=== PATIENT | male | born 1990 | race Asian ===

== ENCOUNTER 2020-12-20 12:06 | Outpatient (REF) | payer OTHER, SELFPAY ==
[2020-12-20 12:58] LABS: MANUAL DIFF FLAG NO
[2020-12-20 13:02] LABS: Basophils Percent Auto 0.5 % (0-2); Eosinophils Absolute Auto 0.1 X10*3/uL (0.0-0.4); Eosinophils Percent Auto 2.1 % (0-4); Hematocrit 43.1 % (42-52); Hemoglobin 13.8 g/dl (14.0-18.0); Imm Gran Abs Auto 0.02 X10*3/uL (0.00-0.03); Imm Gran Pct Auto 0.3 % (0.0-0.4); Lymphocytes Absolute Auto 1.9 X10*3/uL (1.2-4.9); Lymphocytes Percent Auto 33.4 % (20-40); Mean Corpuscular Hemoglobin 25.8 pg (27.0-33.0); Mean Corpuscular Volume 80.7 fL (80-98); Mean Platelet Volume 9.2 fL (9.4-12.4); Monocytes Absolute Auto 0.4 X10*3/uL (0.1-1.2); Neutrophils Absolute Auto 3.2 X10*3/uL (2.0-8.3); Neutrophils Percent Auto 56.7 % (45-73); Platelet Count 347 X10*3/uL (160-400); Red Blood Count 5.34 X10*6/uL (4.60-5.80); Red Cell Distribution Width 13.1 % (11.0-16.0); White Blood Count 5.7 X10*3/uL (4.8-10.8)
[2020-12-20 13:38] LABS: Alanine Aminotransferase 23 U/L (0-40); Albumin Level 4.4 g/dL (3.5-5.0); Alkaline Phosphatase 52 U/L (39-117); Anion Gap 10 (12-20); Aspartate Amino Transferase 26 U/L (5-37); Bilirubin Total 2.1 mg/dL (0.0-1.0); Blood Urea Nitrogen 10 mg/dL (9-16); Calcium 9.4 mg/dL (8.4-10.2); Carbon Dioxide 27 mmol/L (22-29); Chloride 106 mmol/L (96-108); Cholesterol 175 mg/dL; Estimated Glomerular Filt Rate > 60; Glucose Fasting 86 mg/dL (60-99); HDL Cholesterol 48 mg/dL; LDL Cholesterol Calculated 112 mg/dl; Potassium 4.4 mmol/L (3.3-5.1); Sodium 139 mmol/L (135-145); Total Protein 7.6 g/dL (6.5-8.0); Triglycerides 79 mg/dL
== END 2020-12-20 12:07 | disposition home or self-care (01) ==
LOC: HO.LAB 12:06
PROVIDERS: PCP Internal Medicine; Visit Provider Internal Medicine
DX: Z00.00 Encounter for general adult medical examination without abnormal findings (principal); E11.9 Type 2 diabetes mellitus without complications
CPT/HCPCS: 36415; 80053; 80061; 85025

== ENCOUNTER 2020-12-26 10:05 | Outpatient (REF) | payer OTHER, SELFPAY ==
--- NOTE | ~2020-12-26 | US_ITS ---
EXAMINATION: US ABDOMEN COMPLETE CLINICAL INFORMATION: Unspecified abdominal pain. COMPARISON: Ultrasound abdomen complete 06/09/2018 TECHNIQUE: Real-time imaging of the abdominal viscera. FINDINGS: PANCREAS: Normal. ABDOMINAL AORTA: The proximal, mid, and distal segments are normal in caliber. INFERIOR VENA CAVA: Visualized portions are normal. LIVER: Normal. The liver is normal in size. The liver contour is normal. Parenchymal echogenicity is normal. No focal hepatic lesion. There is no intrahepatic biliary duct dilatation seen. GALLBLADDER: Mildly echogenic and slight irregularity of the gallbladder wall, could reflect adenomyomatosis. The gallbladder is physiologically distended without evidence of stones, sludge, polyps, wall thickening or pericholecystic fluid. COMMON BILE DUCT: Normal in caliber measuring 0.2 cm in diameter. RIGHT KIDNEY: Normal. No hydronephrosis. No renal calculi or focal parenchymal lesions. The kidney measures 11.9 cm in maximum dimension. LEFT KIDNEY: Normal. No hydronephrosis. No renal calculi or focal parenchymal lesions. The kidney measures 11.8 cm in maximum dimension. SPLEEN: Normal. The spleen measures 7.1 cm in maximum dimension. FREE FLUID: None. Velocity in the celiac artery 299 cm/s. Velocity in the SMA is 255 cm/s. This is slightly increased. US/US abdomen complete IMPRESSION: 1. Mild echogenicity and irregularity of the gallbladder wall, nonspecific, could represent adenomyomatosis. No shadowing calculi. No findings to suggest acute cholecystitis otherwise. Recommend 3-month followup ultrasound for reassessment. 2. Mild increased velocity in the celiac artery and SMA, nonspecific. Consider dedicated Doppler ultrasound for further evaluation.
== END 2020-12-26 10:06 | disposition home or self-care (01) ==
LOC: HO.US 10:05
PROVIDERS: Visit Provider Internal Medicine
DX: R10.9 Unspecified abdominal pain (principal)
CPT/HCPCS: 76700

== ENCOUNTER 2022-06-01 12:21 | Outpatient (REF) | payer OTHER, SELFPAY ==
[2022-06-01 13:12] LABS: MANUAL DIFF FLAG NO
[2022-06-01 13:23] LABS: Basophils Percent Auto 0.5 % (0-2); Eosinophils Absolute Auto 0.1 X10*3/uL (0.0-0.4); Hematocrit 44.9 % (42.0-52.0); Hemoglobin 14.2 g/dl (14.0-18.0); Imm Gran Abs Auto 0.02 X10*3/uL (0.00-0.03); Imm Gran Pct Auto 0.3 % (0.0-0.4); Lymphocytes Absolute Auto 2.5 X10*3/uL (1.2-4.9); Lymphocytes Percent Auto 39.9 % (20-40); Mean Corpuscular HGB Conc 31.6 g/dl (31.0-36.0); Mean Corpuscular Hemoglobin 25.9 pg (27.0-33.0); Mean Corpuscular Volume 81.8 fL (80.0-98.0); Mean Platelet Volume 9.3 fL (9.4-12.4); Monocytes Absolute Auto 0.4 X10*3/uL (0.1-1.2); Monocytes Percent Auto 6.7 % (2-11); Neutrophils Absolute Auto 3.1 x10*3/uL (2.0-8.3); Neutrophils Percent Auto 50.6 % (45-73); Platelet Count 369 X10*3/uL (160-400); Red Blood Count 5.49 X10*6/uL (4.60-5.80); White Blood Count 6.1 X10*3/uL (4.8-10.8)
[2022-06-01 13:24] LABS: Appearance Urine Cloudy; Color Urine Yellow; Glucose Urine UA Negative (Negative); Leukocyte Esterase Urine Negative (Negative); Nitrite Urine Negative (Negative); PH 7.5 (5.0-9.0); Specific Gravity - Urine 1.015 (1.005-1.025); Urine Blood Negative (Negative); Urine Ketones Negative (Negative); Urine Protein Negative (Neg-Trace)
[2022-06-01 13:35] LABS: Alanine Aminotransferase 40 U/L (0-40); Albumin Level 4.3 g/dL (3.5-5.0); Alkaline Phosphatase 61 U/L (39-117); Anion Gap 13 (12-20); Aspartate Amino Transferase 29 U/L (5-37); Bilirubin Total 1.8 mg/dL (0.0-1.0); Blood Urea Nitrogen 11 mg/dL (9-16); Calcium 9.5 mg/dL (8.4-10.2); Carbon Dioxide 27 mmol/L (22-29); Chloride 103 mmol/L (96-108); Cholesterol 187 mg/dL; Estimated Glomerular Filt Rate > 60; Glucose Fasting 95 mg/dL (60-99); HDL Cholesterol 44 mg/dL; LDL Cholesterol Calculated 117 mg/dl; Potassium 4.3 mmol/L (3.3-5.1); Sodium 139 mmol/L (135-145); Total Protein 7.6 g/dL (6.5-8.0); Triglycerides 134 mg/dL
[2022-06-01 13:55] LABS: TSH reflex Free T4 0.93 uIU/mL (0.32-4.0)
== END 2022-06-01 12:22 | disposition home or self-care (01) ==
LOC: HO.HMGCLDS 12:21
PROVIDERS: PCP Nurse Practitioner Family; Visit Provider Nurse Practitioner Family
DX: Z00.00 Encounter for general adult medical examination without abnormal findings (principal)
CPT/HCPCS: 36415; 80053; 80061; 81003; 84443; 85025

== ENCOUNTER 2022-07-09 15:22 | Outpatient (REF) | payer OTHER, SELFPAY ==
[2022-07-09 17:17] LABS: Bilirubin Direct 0.4 mg/dL (0.0-0.5); Bilirubin Total 1.8 mg/dL (0.0-1.0)
[2022-07-09 17:33] LABS: Vitamin D 25-OH Total 17.2 ng/mL (>30)
== END 2022-07-09 15:23 | disposition home or self-care (01) ==
LOC: HO.HMGCLDS 15:22
PROVIDERS: Visit Provider Nurse Practitioner Family
DX: R17 Unspecified jaundice (principal); R53.83 Other fatigue
CPT/HCPCS: 36415; 82247; 82248; 82306

== ENCOUNTER 2022-07-11 11:34 | Outpatient (REF) | payer OTHER, SELFPAY ==
[2022-07-11 13:31] LABS: Immature Retic Fraction 4.9 % (2.3-13.4); Retic HGB Equivalent 31.5 pg (30.0-35.0); Reticulocytes Absolute 0.058 X10*6/uL (0.026-0.095)
[2022-07-11 13:55] LABS: C Reactive Protein 0.04 mg/dL (< or = 0.50)
[2022-07-13 06:04] LABS: Transglutaminase Ab IgG <1.0 U/mL; Transglutaminase IgA <1.0 U/mL
[2022-07-13 15:33] LABS: Immunoglobulin A 248 mg/dL (47-310)
== END 2022-07-11 11:35 | disposition home or self-care (01) ==
LOC: HO.LAB 11:34
PROVIDERS: PCP Nurse Practitioner Family; Visit Provider Internal Medicine Gastroenterology
DX: R17 Unspecified jaundice (principal); K21.9 Gastro-esophageal reflux disease without esophagitis; R53.83 Other fatigue; E80.4 Gilbert syndrome; E73.9 Lactose intolerance, unspecified; R19.7 Diarrhea, unspecified; R93.2 Abnormal findings on diagnostic imaging of liver and biliary tract
CPT/HCPCS: 36415; 82784; 85045; 86140; 86364; 99202

== ENCOUNTER 2023-03-21 09:28 | Outpatient (REF) | payer OTHER, SELFPAY ==
[2023-03-21 11:14] LABS: MANUAL DIFF FLAG NO
[2023-03-21 11:43] LABS: Basophils Absolute Auto 0.1 X10*3/uL (0.0-0.2); Basophils Percent Auto 0.9 % (0-2); Eosinophils Absolute Auto 0.1 X10*3/uL (0.0-0.4); Eosinophils Percent Auto 1.6 % (0-4); Hematocrit 47.6 % (42.0-52.0); Hemoglobin 14.9 g/dl (14.0-18.0); Imm Gran Abs Auto 0.04 X10*3/uL (0.00-0.03); Imm Gran Pct Auto 0.7 % (0.0-0.4); Lymphocytes Absolute Auto 2.1 X10*3/uL (1.2-4.9); Lymphocytes Percent Auto 37.1 % (20-40); Mean Corpuscular HGB Conc 31.3 g/dl (31.0-36.0); Mean Corpuscular Hemoglobin 25.4 pg (27.0-33.0); Mean Corpuscular Volume 81.1 fL (80.0-98.0); Mean Platelet Volume 9.6 fL (9.4-12.4); Monocytes Absolute Auto 0.4 X10*3/uL (0.1-1.2); Monocytes Percent Auto 6.8 % (2-11); Neutrophils Percent Auto 52.9 % (45-73); Platelet Count 409 X10*3/uL (160-400); Red Blood Count 5.87 X10*6/uL (4.60-5.80); Red Cell Distribution Width 13.2 % (11.0-16.0); White Blood Count 5.7 X10*3/uL (4.8-10.8)
[2023-03-21 12:50] LABS: Folate 7.7 ng/mL (> or = 4.0); Vitamin B12 345 pg/mL (200-900)
[2023-03-21 13:29] LABS: Appearance Urine Clear; Color Urine Yellow; Glucose Urine UA Negative (Negative); Leukocyte Esterase Urine Negative (Negative); Nitrite Urine Negative (Negative); PH 7.5 (5.0-9.0); Urine Blood Negative (Negative); Urine Ketones Negative (Negative); Urine Protein Negative (Neg-Trace)
[2023-03-21 14:23] LABS: Alanine Aminotransferase 48 U/L (0-40); Albumin Level 4.4 g/dL (3.5-5.0); Alkaline Phosphatase 55 U/L (39-117); Anion Gap 13 (12-20); Aspartate Amino Transferase 40 U/L (5-37); Bilirubin Total 1.3 mg/dL (0.0-1.0); Blood Urea Nitrogen 11 mg/dL (9-16); Calcium 9.7 mg/dL (8.4-10.2); Carbon Dioxide 25 mmol/L (22-29); Chloride 103 mmol/L (96-108); Cholesterol 206 mg/dL (<200); Estimated Glomerular Filt Rate > 60; Glucose Fasting 82 mg/dL (60-99); HDL Cholesterol 49 mg/dL (>40); Iron 78 mcg/dL (45-160); LDL Cholesterol Calculated 141 mg/dL (<100); Percent Iron Saturation 22 % (15-50); Potassium 3.7 mmol/L (3.3-5.1); Sodium 137 mmol/L (135-145); Total Iron Binding Capacity 352 mcg/dL (228-428); Triglycerides 82 mg/dL (<150); Unsaturated Iron Binding 274 ug/dL
[2023-03-21 14:26] LABS: Ferritin 99 ng/mL (20-250); TSH reflex Free T4 1.08 uIU/mL (0.32-4.0); Vitamin D 25-OH Total 31.4 ng/mL (>30)
[2023-03-24 22:42] LABS: A. Phagocytphilium DNA,RT-PCR NOT DETECTED (NOT DETECTED); Babesia Microti DNA, RT-PCR NOT DETECTED (NOT DETECTED); Borrelia Miyamotoi,DNA RT-PCR NOT DETECTED (NOT DETECTED); E.Chaffeensis DNA RT-PCR NOT DETECTED (NOT DETECTED); Lyme(Borrelia ssp)DNA RT-PCR NOT DETECTED (NOT DETECTED)
[2023-03-25 11:35] LABS: Anti Nuclear Antibody Screen NEGATIVE (NEGATIVE)
[2023-03-28 14:39] LABS: DNAds, Crithidia Antibody Negative (Negative)
== END 2023-03-21 09:29 | disposition home or self-care (01) ==
LOC: HO.HMGCLDS 09:28
PROVIDERS: PCP Nurse Practitioner Family; Visit Provider Nurse Practitioner Family
DX: R53.83 Other fatigue (principal)
CPT/HCPCS: 36415; 80053; 80061; 81003; 82306; 82607; 82728; 82746; 83540; 84443; 85025; 86038; 86255; 87468; 87469; 87478; 87484; 87798

== ENCOUNTER 2023-04-01 10:00 | Outpatient (REF) | payer OTHER, SELFPAY ==
--- NOTE | ~2023-04-01 | US_ITS ---
EXAMINATION: US ABDOMEN COMPLETE CLINICAL INFORMATION: Abnormal levels of other serum enzymes. COMPARISON: Ultrasound abdomen complete 12/26/2020 and 06/09/2018. TECHNIQUE: Real-time imaging of the abdominal viscera. FINDINGS: PANCREAS: Normal. ABDOMINAL AORTA: The proximal, mid, and distal segments are normal in caliber. INFERIOR VENA CAVA: Visualized portions are normal. LIVER: The liver is normal in size. The liver contour is normal. There is diffuse increased liver parenchymal echogenicity, consistent with hepatic steatosis. No focal hepatic lesion. There is no intrahepatic biliary duct dilatation seen. GALLBLADDER: Tiny 3 mm gallbladder wall polyp with ball on wall morphology. No underlying mural thickening. This is considered extremely low risk. No follow-up imaging is recommended as per the SRU guidelines. No cholelithiasis. No evidence of cholecystitis. Negative sonographic Barnett sign. COMMON BILE DUCT: Normal in caliber measuring 0.16 cm in diameter. RIGHT KIDNEY: Normal. No hydronephrosis. No renal calculi or focal parenchymal lesions. The kidney measures 11.7 cm in maximum dimension. LEFT KIDNEY: Normal. No hydronephrosis. No renal calculi or focal parenchymal lesions. The kidney measures 11.8 cm in maximum dimension. SPLEEN: Normal. The spleen measures 8.1 cm in maximum dimension. FREE FLUID: None. US/US abdomen complete IMPRESSION: Hepatic steatosis.
== END 2023-04-01 10:01 | disposition home or self-care (01) ==
LOC: HO.HMGCX 10:00
PROVIDERS: PCP Nurse Practitioner Family; Visit Provider Nurse Practitioner Family
DX: R74.8 Abnormal levels of other serum enzymes (principal)
CPT/HCPCS: 76700

== ENCOUNTER 2023-04-03 13:40 | Outpatient (AMB) | payer OTHER, SELFPAY ==
--- NOTE | 2023-04-03 13:46 | A.OFFVIS_ITS ---
Intake Vital Signs 04/03/23 13:49 Height 6 ft 2 in Weight 163 lb BMI 20.9 BP 124/73 Blood Pressure Location Lt brachial Position Sitting Pulse 95 Intake Visit Reasons: 3 month follow up Intake Note: Patient follow up for lab results Patient denies any GI issues. Patient needed to get his Vitamin D in tablets he is allergy to capsule. 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 De La Torre for elevated bilirubin LABS IN [facility] : reviewed IMAGING STUDIES: 04/01/23 ABD US SHOWED: LIVER: The liver is normal in size. The liver contour is normal. There is diffuse increased liver parenchymal echogenicity, consistent with hepatic steatosis. No focal hepatic lesion. There is no intrahepatic biliary duct dilatation seen. GALLBLADDER: Tiny 3 mm gallbladder wall polyp with ball on wall morphology. No underlying mural thickening. This is considered extremely low risk. No follow-up imaging is recommended as per the SRU guidelines. No cholelithiasis. No evidence of cholecystitis. Negative sonographic Barnett sign. 12/26/21 ABD US SHOWED: 1. Mild echogenicity and irregularity of the gallbladder wall, nonspecific, could represent adenomyomatosis. No shadowing calculi. No findings to suggest acute cholecystitis otherwise. Recommend 3-month followup ultrasound for reassessment. ? 2. Mild increased velocity in the celiac artery and SMA, nonspecific. Consider dedicated Doppler ultrasound for further evaluation. TODAY'S VISIT: Notes heartburn if he takes spicy food at night - not taking Pt gives a hx of being told he had an elevated bilirubin in the past. Denies known hx of Jaundice. Complains on intermittent heartburn specially when he wakes up in the morning. Takes TUMS prn. Decreased appetite and does not feel hungry till 3-4 pm in the afternoon Has lost weight and has been unable to gain weight Complains of fatigue and notes diarrhea with milk products, spicy foods Patient denies symptoms of dysphagia, nausea, vomiting. Denies recent change in bowel habits, constipation, black stools or rectal bleeding. Patient denies major cardiac or pulmonary problems, loud snoring or sleep apnea Denies problems with anesthesia in the past. Denies being on chronic anticoagulation. Patient denies known family history of liver disease, colon polyps, colon cancer or other GI malignancies. Patient denies symptoms of dysphagia, nausea, vomiting, change in appetite or weight. Denies recent change in bowel habits, constipation, black stools or rectal bleeding. Remote hx of rectal bleeding. Patient denies major cardiac or pulmonary problems, loud snoring or sleep apnea Takes an allergy shot every 2 weeks - breathing problems due to allergies Denies being on chronic anticoagulation. Patient denies known family history of liver disease, colon polyps, colon cancer or other GI malignancies. 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 PAST EGD/COLONOSCOPY: Patient denies having an upper endoscopy or a colonoscopy in the past [facility] Medical History (Updated 04/02/23 @ 12:38 by Rubin To [facility]) Fatty liver Surgical History No pertinent past surgical history Family History Mother No problems noted. Father No problems noted. Social History Housing: House Alcohol intake: never Patient Tobacco Use Status: Never used Tobacco e-Cigarette/Vaping Use: Never Used Second Hand Smoke Exposure: No service: No Current occupational status: employed Current occupation: [employer] Current occupational exposures/hazards: No Cognitive needs: No Hearing needs: No Vision needs: No Review of Systems Const All systems reviewed & are unremarkable except as noted in HPI and below Physical Exam Vital Signs: Last Vital Signs Pulse 95 04/03/23 13:49 BP 124/73 04/03/23 13:49 BMI result Body Mass Index 20.9 Const General: healthy appearing and no acute distress Nutritional Appearance: average body habitus Orientation/consciousness: patient oriented x3 Limitations: no limitations HEENT Head: Yes normal to inspection Ears: hearing grossly normal bilaterally Eyes Sclerae: sclerae normal Pupils: Equal, round and reactive pupils present Neck Neck: Yes normal visual inspection Chest Chest palpation & inspection: normal inspection of the chest Resp Effort & Inspection: normal respiratory effort Auscultation: clear to auscultation bilaterally Cardio Palpation: normal PMI Rate: regular rate Rhythm: regular rhythm Heart sounds: S1 normal heart sound present, S2 normal heart sound present and no murmurs GI Palpation (GI): Soft to palpation, nontender and No hepatosplenomegaly present Auscultation: normal bowel sounds Rectal Exam - Male: Yes deferred Skin General skin exam: no rashes or lesions noted Neuro General: patient oriented x3, gait normal and moves all extremities Cranial nerves: Yes Equal, round and reactive pupils present Psych Appearance: grossly normal Mental Status: mental status grossly normal Assessment & Plan Assessment & Plan (1) Elevated liver enzymes: Code(s): R74.8 - Abnormal levels of other serum enzymes (2) Intermittent diarrhea: Code(s): R19.7 - Diarrhea, unspecified (3) Lactose intolerance: Code(s): E73.9 - Lactose intolerance, unspecified (4) Gilbert's syndrome: Code(s): E80.4 - Gilbert syndrome (5) GERD (gastroesophageal reflux disease): Code(s): K21.9 - Gastro-esophageal reflux disease without esophagitis (6) Abnormal ultrasound of gallbladder: Code(s): R93.2 - Abnormal findings on diagnostic imaging of liver and biliary tract Plan 33 year old [place] male referred by Dr. Coronado for isolated eleva tion of total bilirubin (predominantly indirect and remaining LFTs were normal) This lab abnormality is likely due to Gilbert's syndrome which was explained to the patient and pt a handout from [facility] was given to him. Complains on intermittent heartburn likely due to GERD - resolved after dietary modification. Pt notes diarrhea with milk products, spicy foods - likely due to lactose intolerance/ diarrhea predominant IBS. Pt was advised to switch to Lactaid milk and a patient information on lactose intolerance was provided to the patient. Patient was advised to start a fiber supplement (psyllium husk) for diarrhea. 04/03/23 Mild elevation of transaminases on recent labs - likely due to fatty liver Hepatitis and celiac serologies were negative in the past Iron studies and CHRISTIANA was normal Patient was advised to follow up in 4 months to have repeat labs 1-2 weeks prior to FU appt. Orders: Orders Smooth Muscle Antibody 06/06/23 R74.8 - Abnormal levels of other serum enzymes Liver Panel 06/06/23 R74.8 - Abnormal levels of other serum enzymes Alpha-1 Antitrypsin Phenotype 06/06/23 R74.8 - Abnormal levels of other serum enzymes Ceruloplasmin 06/06/23 R74.8 - Abnormal levels of other serum enzymes Copper, serum 06/06/23 R74.8 - Abnormal levels of other serum enzymes Protein Electrophoresis, Serum 06/06/23 R74.8 - Abnormal levels of other serum enzymes Medications: New cholecalciferol (vitamin D3) 125 mcg orally three times a week; 40 tabs 1RF 90 days multivitamin 1 tab PO QAM 90 tabs 1RF 90 days Coding Level of Care Code Est Pt Level 4 (27688) Diagnoses Elevated liver enzymes R74.8 Intermittent diarrhea R19.7 Lactose intolerance E73.9 Gilbert's syndrome E80.4 GERD (gastroesophageal reflux disease) K21.9 Abnormal ultrasound of gallbladder R93.2 Time Spent (min) 21
[2023-04-03 13:49] VITALS: BP 124/73; PULSE 95; BMI 20.9
== END 2023-04-03 14:39 | disposition home or self-care (01) ==
PROVIDERS: Visit Provider Internal Medicine Gastroenterology
DX: R74.8 Abnormal levels of other serum enzymes (principal); R19.7 Diarrhea, unspecified; E73.9 Lactose intolerance, unspecified; E80.4 Gilbert syndrome; K21.9 Gastro-esophageal reflux disease without esophagitis; R93.2 Abnormal findings on diagnostic imaging of liver and biliary tract
CPT/HCPCS: 99214

== ENCOUNTER → 2023-04-03 13:40 | Outpatient (BNVA) | payer OTHER, SELFPAY | PROVIDERS: Visit Provider Internal Medicine Gastroenterology | DX: R74.8 Abnormal levels of other serum enzymes (principal); R19.7 Diarrhea, unspecified; E73.9 Lactose intolerance, unspecified; E80.4 Gilbert syndrome; K21.9 Gastro-esophageal reflux disease without esophagitis; R93.2 Abnormal findings on diagnostic imaging of liver and biliary tract | CPT/HCPCS: 99212 ==

== ENCOUNTER 2023-12-09 11:40 | Outpatient (REF) | payer OTHER, SELFPAY ==
[2023-12-09 13:56] LABS: Alanine Aminotransferase 50 U/L (0-40); Albumin Level 4.2 g/dL (3.5-5.0); Alkaline Phosphatase 54 U/L (39-117); Aspartate Amino Transferase 32 U/L (5-37); Bilirubin Direct 0.3 mg/dL (0.0-0.5); Total Protein 7.7 g/dL (6.5-8.0)
[2023-12-10 04:03] LABS: HBS Num1 97.08 mIU/mL (0-7.99); HBc Num1 0.07 S/CO (0.00-0.79); HBsAGNum1 0.26 S/CO (0.00-0.99); Hepatitis A Antibody IgM 0.24 Index (0-0.79); Hepatitis B Core Antibody Nonreactive (Nonreactive); Hepatitis B Surface Antigen Negative (Negative); ~HepC Num1 0.15 S/CO (0.00-0.79); ~Hepatitis A Antibody IgM Nonreactive (Nonreactive); ~Hepatitis B Surface Antibody REACTIVE (Nonreactive); ~Hepatitis C Antibody Nonreactive (Nonreactive)
[2023-12-10 18:43] LABS: Ceruloplasmin 13 mg/dL (14-30)
[2023-12-10 21:29] LABS: Prot Elec - Albumin 4.4 g/dL (3.8-4.8); Prot Elec - Alpha1 0.2 g/dL (0.2-0.3); Prot Elec - Alpha2 0.6 g/dL (0.5-0.9); Prot Elec - Beta 1 0.5 g/dL (0.4-0.6); Prot Elec - Beta 2 0.4 g/dL (0.2-0.5); Prot Elec - Gamma 1.5 g/dL (0.8-1.7); Prot Elec - Total Protein 7.6 g/dL (6.1-8.1)
[2023-12-12 13:38] LABS: Copper, serum 48 mcg/dL (70-175)
[2023-12-15 15:58] LABS: Smooth Muscle Antibody <20 U (<20)
[2023-12-25 15:13] LABS: A1A Clinical Indication NG; A1A Referring Physician NG
== END 2023-12-09 11:41 | disposition home or self-care (01) ==
LOC: HO.HMGCLDS 11:40
PROVIDERS: Internal Medicine Gastroenterology; PCP Nurse Practitioner Family; Visit Provider Nurse Practitioner Family
DX: R74.8 Abnormal levels of other serum enzymes (principal)
CPT/HCPCS: 36415; 80076; 82104; 82390; 82525; 84165; 86015; 86704; 86706; 86709; 86803; 87340

== ENCOUNTER 2024-01-19 15:04 | Outpatient (AMB) | payer OTHER, SELFPAY ==
--- NOTE | 2024-01-19 15:05 | A.OFFPC_ITS ---
Vital Signs 01/19/24 15:13 Height 6 ft 1 in Weight 173 lb BMI 22.8 BP 128/80 Blood Pressure Location Rt brachial Position Sitting Pulse 72 Pulse Source Pulse Oximeter Pulse Oximetry (%) 100 Oxygen Delivery Method Room Air Intake Visit Reasons: PE/labs NEEDS COMPLETE PHQ9 +THRIVE Intake Note: Patient here for physical exam. pt would like to talk about lower right abd pain that has been coming and going for awhile now. Allergies gelatin Adverse Reaction (Verified 01/19/24 15:14) Unknown Tobacco use date assessed: 01/19/24 Dental Screening Dental Screen Date: 01/19/24 Did you have a dental visit in the last 12 months?: No Did you have a dental problem in the last 6 months where you did not have access to dental care?: No Was dental information given to patient?: No HPI HPI Comments History of Present Illness Details pt is here for a PE. Reports he thinks negatively sometimes, i always think something is going to happen . Pt is requesting a therapist, i will let guillermo know () [facility] Medical History Fatty liver Surgical History No pertinent past surgical history Family History Mother No problems noted. Father No problems noted. Social History Housing: House Alcohol intake: never Patient Tobacco Use Status: Never used Tobacco e-Cigarette/Vaping Use: Never Used Second Hand Smoke Exposure: No service: No Current occupational status: employed Current occupation: [employer] Current occupational exposures/hazards: No Cognitive needs: No Hearing needs: No Vision needs: No Questionnaire PHQ-9 Over the last 2 weeks, how often have you been bothered by any of the following problems? 79956 - PHQ-9 Billing: Patient declined-do not bill Source: Developed by Drs. Marco Antonio Oconnor, Lea Aleman, Anderson Cassidy and colleagues, with an educational carrie from [employer]. Thrive Questionnaire Date Thrive assessed: 01/19/24 I am a: Patient What is your living situation today?: I have a steady place to live Within the past 12 months, did the food you bought not last and you didn't have the money to get more?: I choose not to answer this question Within the past 12 months, did you worry whether your food would run out before you got money to buy more?: I choose not to answer this question Do you have trouble paying for medicines?: I choose not to answer this question Do you have trouble getting transportation to medical appointments?: I choose not to answer this question Do you have trouble paying your heating and electricity bill?: I choose not to answer this question Do you have trouble taking care of your child, family member or friend?: I choose not to answer this question Do you have trouble with day-to-day activities such as bathing, preparing meals, shopping, managing finances, etc.?: I choose not to answer this question Are you currently unemployed and looking for a job?: I choose not to answer this question Are you interested in more education?: I choose not to answer this question Please select the resources that you would like help with: Housing/Chcf Currently or been in a relationship where the following occur: I choose not to answer THRIVE Score: 0 AUDIT C Alcohol Use Questionnaire (AUDIT-C) 1. How often do you have a drink containing alcohol?: Never Total Score: 0 Score Reviewed/Action Taken: Yes ELIZABETH-7 AMB Questionnaire ELIZABETH-7 Date ELIZABETH - 7 assessed: 01/19/24 Feeling nervous, anxious, or on edge: 0 = Not at all Not being able to stop or control worryin = Not at all Worrying too much about different things: 0 = Not at all Trouble relaxin = Not at all Being so restless that it is hard to sit still: 0 = Not at all Becoming easily annoyed or irritable: 0 = Not at all Feeling afraid as if something awful might happen: 0 = Not at all Total ELIZABETH-7 score (0-4 normal; 5-9 mild; 10-14 moderate; 15-21 severe): 0 Source: Developed by Drs. Marco Antonio Oconnor, Lea Aleman, Anderson Cassidy and colleagues, with an educational carrie from [employer]. ELIZABETH-7 Assessment Billing ELIZABETH-7 Assessment Tool: ELIZABETH-7 Assessment 95182 Review of Systems Const Denies chills and Denies fever(s) Eyes Denies blurry vision ENT Denies vertigo, Denies dizziness and Denies sore throat Card Denies chest pain at rest, Denies chest pain with activity, Denies diaphoresis, Denies dyspnea and Denies dyspnea on exertion Resp Denies cough, Denies dyspnea, Denies dyspnea on exertion and Denies wheezing GI Denies abdominal pain, Denies melena, Denies hematochezia, Denies constipation, Denies diarrhea and Denies loose stools Denies hematuria Musc Denies numbness and Denies tingling Skin/Breast Denies lesions Neuro Denies vertigo, Denies dizziness, Denies numbness and Denies tingling Psych Denies anxiety, Denies depression, Denies homicidal ideation, Denies suicidal ideation and Denies other (substance abuse) Aller/Immun Denies wheezing Physical exam (Primary Care) Vital Signs: Last Vital Signs Pulse 72 01/19/24 15:13 BP 128/80 01/19/24 15:13 Pulse Ox 100 01/19/24 15:13 Oxygen Delivery Method Room Air 01/19/24 15:13 BMI result Body Mass Index 22.8 Tobacco/Smoking Status: Tobacco use Status Tobacco use date assessed 01/19/24 01/19/24 15:17 Patient Tobacco Use Status Never used Tobacco 01/19/24 15:07 e-Cigarette/Vaping Use Never Used 01/19/24 15:07 Thrive Assessment: Date of Thrive Assessment Date Thrive assessed 01/19/24 01/19/24 15:17 Currently or been in a relationship where the following occur: I choose not to answer Const General: cooperative Nutritional Appearance: well nourished Orientation/consciousness: patient oriented x3 HENMT Head: Yes normal to inspection, Yes normocephalic and Yes atraumatic Ears: TM normal on the right and TM normal on the left Eyes General: appearance normal, both eyes and all related structures Alignment and Position: alignment normal and position normal Neck Neck: Yes normal visual inspection and Yes no lymphadenopathy Resp Effort & Inspection: normal respiratory effort Auscultation: clear to auscultation bilaterally Cardio Rate: regular rate Rhythm: regular rhythm Heart sounds: S1 normal heart sound present, S2 normal heart sound present and no murmurs GI Palpation (GI): Soft to palpation and nontender Auscultation: normal bowel sounds Male General Exam: Yes normal external exam Penis: normal penis Scrotum: scrotum normal, testes descended bilaterally and no inguinal hernias Testes: no testicular mass Skin Rashes: no rashes Neuro General: patient oriented x3, moves all extremities, no focal motor deficits and deep tendon reflexes 2+ bilaterally Romberg Test: Negative Extrem Right lower extremity: no edema Left lower extremity: no edema Psych Affect: normal affect Attitude: cooperative Thought process: Normal thought process present Assessment and Plan Assessment & Plan (1) Physical exam: Code(s): Z00.00 - Encounter for general adult medical examination without abnormal findings (2) Vitamin D deficiency: Code(s): E55.9 - Vitamin D deficiency, unspecified Orders: Orders Comprehensive Salt Flat. Panel Fast Today Z00.00 - Encounter for general adult medical examination without abnormal findings Complete Blood Count Auto Diff Today Z00.00 - Encounter for general adult medical examination without abnormal findings TSH reflex Free T4 Today Z00.00 - Encounter for general adult medical examination without abnormal findings UA CC w/rflx Micro + Cult Today Z00.00 - Encounter for general adult medical examination without abnormal findings Lipid Panel Today Z00.00 - Encounter for general adult medical examination without abnormal findings Vitamin D 25-OH Total Today E55.9 - Vitamin D deficiency, unspecified Coding Level of Care Code Est Pt Prev Care 18-39y([id number]) Diagnoses Physical exam Z00.00 Vitamin D deficiency E55.9 Additional Codes ELIZABETH-7 Assessment Billing - ELIZABETH-7 Assessment Tool: ELIZABETH-7 Assessment [id number] ([id number])
[2024-01-19 15:13] VITALS: BP 128/80; PULSE 72; O2SAT 100; BMI 22.8
== END 2024-01-19 15:52 | disposition home or self-care (01) ==
PROVIDERS: PCP Nurse Practitioner Family; Visit Provider Nurse Practitioner Family
DX: Z00.00 Encounter for general adult medical examination without abnormal findings (principal); E55.9 Vitamin D deficiency, unspecified
CPT/HCPCS: 99395

== ENCOUNTER 2024-06-19 11:55 | Outpatient (REF) | payer OTHER, SELFPAY ==
[2024-06-19 13:35] LABS: MANUAL DIFF FLAG NO
[2024-06-19 13:38] LABS: Basophils Absolute Auto 0.1 X10*3/uL (0.0-0.2); Basophils Percent Auto 0.8 % (0-2); Eosinophils Absolute Auto 0.1 X10*3/uL (0.0-0.4); Eosinophils Percent Auto 1.9 % (0-4); Hemoglobin 14.7 g/dl (14.0-18.0); Imm Gran Abs Auto 0.03 X10*3/uL (0.00-0.03); Imm Gran Pct Auto 0.4 % (0.0-0.4); Lymphocytes Absolute Auto 2.2 X10*3/uL (1.2-4.9); Lymphocytes Percent Auto 29.6 % (20-40); Mean Corpuscular Hemoglobin 25.7 pg (27.0-33.0); Mean Corpuscular Volume 80.6 fL (80.0-98.0); Mean Platelet Volume 9.4 fL (9.4-12.4); Monocytes Absolute Auto 0.5 X10*3/uL (0.1-1.2); Monocytes Percent Auto 7.3 % (2-11); Neutrophils Absolute Auto 4.4 x10*3/uL (2.0-8.3); Platelet Count 394 X10*3/uL (160-400); Red Blood Count 5.71 X10*6/uL (4.60-5.80); White Blood Count 7.3 X10*3/uL (4.8-10.8)
[2024-06-19 14:35] LABS: Appearance Urine Clear; Color Urine Yellow; Glucose Urine UA Negative (Negative); Leukocyte Esterase Urine Negative (Negative); Nitrite Urine Negative (Negative); PH 7.5 (5.0-9.0); Urine Blood Negative (Negative); Urine Ketones Negative (Negative); Urine Protein Negative (Neg-Trace)
[2024-06-19 14:46] LABS: Alanine Aminotransferase 93 U/L (0-40); Albumin Level 4.3 g/dL (3.5-5.0); Alkaline Phosphatase 66 U/L (39-117); Anion Gap 11 (12-20); Aspartate Amino Transferase 51 U/L (5-37); Bilirubin Total 1.2 mg/dL (0.0-1.0); Blood Urea Nitrogen 12 mg/dL (9-16); Calcium 9.6 mg/dL (8.4-10.2); Carbon Dioxide 28 mmol/L (22-29); Chloride 105 mmol/L (96-108); Cholesterol 202 mg/dL (<200); Estimated Glomerular Filt Rate > 60; Glucose Fasting 82 mg/dL (60-99); HDL Cholesterol 43 mg/dL (>40); LDL Cholesterol Calculated 133 mg/dL (<100); Potassium 3.8 mmol/L (3.3-5.1); Sodium 140 mmol/L (135-145); Total Protein 8.1 g/dL (6.5-8.0); Triglycerides 133 mg/dL (<150)
[2024-06-19 15:01] LABS: TSH reflex Free T4 0.98 uIU/mL (0.32-4.0)
== END 2024-06-19 11:56 | disposition home or self-care (01) ==
LOC: HO.HMGCLDS 11:55
PROVIDERS: PCP Nurse Practitioner Family; Visit Provider Nurse Practitioner Family
DX: Z00.00 Encounter for general adult medical examination without abnormal findings (principal); E55.9 Vitamin D deficiency, unspecified
CPT/HCPCS: 36415; 80053; 80061; 81003; 82306; 84443; 85025

== ENCOUNTER 2025-02-08 15:00 | Outpatient (AMB) | payer OTHER, SELFPAY ==
[2025-02-08 15:05] VITALS: BP 126/86; PULSE 87; RESP 16; TEMP 36.9; O2SAT 99; BMI 22.5
--- NOTE | 2025-02-08 15:05 | MHC.PC.OV ---
Vital Signs 02/08/25 15:05 Height 6 ft 2 in Weight 175 lb BMI 22.5 BP 126/86 Blood Pressure Location Rt brachial Position Sitting Respiration 16 Pulse 87 Pulse Source Pulse Oximeter Temp 98.4 F Temp Source Oral Pulse Oximetry (%) 99 Oxygen Delivery Method Room Air Intake Visit Reasons: PE Mill Set Up Required: No Accompanied by: Self / Same As Patient Allergies gelatin Adverse Reaction (Verified 02/08/25 15:06) Unknown Medication List - Last Reconciled 02/08/25 by CARMELITA Johnson cholecalciferol (vitamin D3) 50 mcg PO DAILY multivitamin 1 tab PO QAM 90 days Tobacco use date assessed: 02/08/25 Dental Screening Dental Screen Date: 02/08/25 Did you have a dental visit in the last 12 months?: No Did you have a dental problem in the last 6 months where you did not have access to dental care?: No Was dental information given to patient?: Patient has dentist HPI PE HPI Details History of Present Illness The patient is a 35-year-old male presenting with incomplete bladder emptying and concerns regarding prostate health. He reports intermittent incomplete bladder emptying without dysuria or hematuria, and there is no family history of prostate carcinoma. A digital rectal examination indicated a slightly enlarged prostate for his age, leading to a referral to urology for further evaluation. Preventative measures include a prostate-specific antigen (PSA) test today, with plans for additional laboratory tests such as urinalysis in the near future. Health Maintenance - Prostate-specific antigen (PSA) screening Social History Review of Systems - Genitourinary: Reports intermittent incomplete bladder emptying. Denies dysuria or hematuria. Physical Exam General: Cooperative, healthy appearing, comfortable, no acute distress and well developed Orientation: Patient oriented x3 Limitations: No limitations Head: Normal to inspection Ears: Hearing grossly normal bilaterally Nose: Normal external nose present Face and sinus: Normal facial exam Eyes: Appearance normal, both eyes and all related structures Neck: Normal visual inspection and Yes full ROM Respiratory: Normal respiratory effort and able to speak in complete sentences. Clear to auscultation bilaterally Cardiovascular: Regular rate and rhythm. Normal S1 and S2 GI: Normal to inspection. Soft to palpation and nontender : Prostate slightly enlarged for age, testicles without masses/lesions and no hernias appreciated Skin: No rashes or lesions noted Neuro: Patient oriented x3 Extremities: Normal to inspection Results Plan The plan includes obtaining a prostate-specific antigen PSA) test today to further assess prostate health. A referral to urology has been made for comprehensive evaluation and management of the slightly enlarged prostate noted during the digital rectal examination. Additional laboratory tests, including urinalysis, are planned for the near future to rule out any underlying urinary tract issues. Discussion Notes I discussed with the patient the findings of the digital rectal examination, which indicated a slightly enlarged prostate for his age. We agreed on obtaining a prostate-specific antigen (PSA) test today and discussed the need for a referral to urology for further evaluation. I also mentioned the plan to conduct additional laboratory tests, including urinalysis, in the near future. Patient Instructions - Follow up with urology as scheduled for further evaluation of prostate health. - Complete the prostate-specific antigen (PSA) test today as discussed. - Await further instructions regarding additional laboratory tests, including urinalysis. FORMERLY [facility], [facility] Medical History Fatty liver Surgical History No pertinent past surgical history Family History Mother No problems noted. Father No problems noted. Social History Housing: House Alcohol intake: never Patient Tobacco Use Status: Never used Tobacco e-Cigarette/Vaping Use: Never Used Second Hand Smoke Exposure: No service: No Current occupational status: employed Current occupation: [employer] Current occupational exposures/hazards: No Cognitive needs: No Hearing needs: No Vision needs: No Questionnaire PHQ-9 Over the last 2 weeks, how often have you been bothered by any of the following problems? 1. Little interest or pleasure in doing things: not at all 2. Feeling down, depressed, or hopeless: not at all 3. Trouble falling or staying asleep, or sleeping too much: not at all 4. Feeling tired or having little energy: not at all 5. Poor appetite or overeating: not at all 6. Feeling bad about yourself - or that you are a failure or have let yourself or your family down: not at all 7. Trouble concentrating on things, such as reading the newspaper or watching television: not at all 8. Moving or speaking so slowly that other people could have noticed. Or the opposite - being so fidgety or restless that you have been moving around a lot more than usual: not at all 9. Thoughts that you would be better off or of hurting yourself in some way: not at all Total score: 0 Depression Screening Interpretation: Negative Depression Screening Done: Yes 81062 - PHQ-9 Billing: Yes Source: Developed by Drs. Marco Antonio Oconnor, Lea Aleman, Anderson Cassidy and colleagues, with an educational carrie from [employer]. Thrive Questionnaire Date Thrive assessed: 01/19/24 I am a: Patient What is your living situation today?: I have a steady place to live Within the past 12 months, did the food you bought not last and you didn't have the money to get more?: I choose not to answer this question Within the past 12 months, did you worry whether your food would run out before you got money to buy more?: I choose not to answer this question Do you have trouble paying for medicines?: I choose not to answer this question Do you have trouble getting transportation to medical appointments?: I choose not to answer this question Do you have trouble paying your heating and electricity bill?: I choose not to answer this question Do you have trouble taking care of your child, family member or friend?: I choose not to answer this question Do you have trouble with day-to-day activities such as bathing, preparing meals, shopping, managing finances, etc.?: I choose not to answer this question Are you currently unemployed and looking for a job?: I choose not to answer this question Are you interested in more education?: I choose not to answer this question Please select the resources that you would like help with: None Currently or been in a relationship where the following occur: I choose not to answer THRIVE Score: 0 ELIZABETH-7 AMB Questionnaire ELIZABETH-7 Date ELIZABETH - 7 assessed: 01/19/24 Feeling nervous, anxious, or on edge: 0 = Not at all Not being able to stop or control worryin = Not at all Worrying too much about different things: 0 = Not at all Trouble relaxin = Not at all Being so restless that it is hard to sit still: 0 = Not at all Becoming easily annoyed or irritable: 0 = Not at all Feeling afraid as if something awful might happen: 0 = Not at all Total ELIZABETH-7 score (0-4 normal; 5-9 mild; 10-14 moderate; 15-21 severe): 0 Source: Developed by Drs. Marco Antonio Oconnor, Lea Aleman, Anderson Cassidy and colleagues, with an educational carrie from [employer]. ELIZABETH-7 Assessment Billing ELIZABETH-7 Assessment Tool: ELIZABETH-7 Assessment 75281 Physical exam (Primary Care) Vital Signs: Last Vital Signs Temp 98.4 F 02/08/25 15:05 Pulse 87 02/08/25 15:05 Resp 16 02/08/25 15:05 BP 126/86 02/08/25 15:05 Pulse Ox 99 02/08/25 15:05 Oxygen Delivery Method Room Air 02/08/25 15:05 BMI result Body Mass Index 22.5 Tobacco/Smoking Status: Tobacco use Status Tobacco use date assessed 02/08/25 02/08/25 15:10 Patient Tobacco Use Status Never used Tobacco 02/08/25 15:10 e-Cigarette/Vaping Use Never Used 02/08/25 15:10 PHQ-9: PHQ-9 Score PHQ-9: Total score 0 02/08/25 15:10 Depression Screening Interpretation: Negative Thrive Assessment: Date of Thrive Assessment Date Thrive assessed 01/19/24 02/08/25 15:10 Currently or been in a relationship where the following occur: I choose not to answer Coding Level of Care Code Est Pt Level 3 (47062) Est Pt Prev Care 18-39y(11265) Diagnoses Physical exam Z00.00 Vitamin D deficiency E55.9 Incomplete bladder emptying R33.9 Additional Codes ELIZABETH-7 Assessment Billing - ELIZABETH-7 Assessment Tool: ELIZABETH-7 Assessment 33377 ([id number]) PHQ-9 - 50663 - PHQ-9 Billing: Yes ([id number]) Assessment & Plan Assessment & Plan (1) Physical exam: Code(s): Z00.00 - Encounter for general adult medical examination without abnormal findings Category: Medical (2) Vitamin D deficiency: Code(s): E55.9 - Vitamin D deficiency, unspecified Category: Medical (3) Incomplete bladder emptying: Code(s): R33.9 - Retention of urine, unspecified Category: Medical Plan . Orders: Orders Complete Blood Count Auto Diff Today Z00.00 - Encounter for general adult medical examination without abnormal findings Comprehensive [place]. Panel Fast Today Z00.00 - Encounter for general adult medical examination without abnormal findings TSH reflex Free T4 Today Z00.00 - Encounter for general adult medical examination without abnormal findings UA CC w/rflx Micro + Cult Today Z00.00 - Encounter for general adult medical examination without abnormal findings Lipid Panel Today Z00.00 - Encounter for general adult medical examination without abnormal findings Prostate Specific Antigen Scr Today R33.9 - Retention of urine, unspecified Syphilis Screen Today R33.9 - Retention of urine, unspecified Hepatitis A,B,C Profile Today R33.9 - Retention of urine, unspecified Vitamin D 25-OH Total Today E55.9 - Vitamin D deficiency, unspecified CT NG by PCR Urine Today R33.9 - Retention of urine, unspecified Referrals Urology Referral R33.9 - Retention of urine, unspecified
== END 2025-02-08 15:25 | disposition home or self-care (01) ==
LOC: HO.HMCC 15:01
PROVIDERS: PCP Nurse Practitioner Family; Visit Provider Nurse Practitioner Family
DX: Z00.00 Encounter for general adult medical examination without abnormal findings (principal); E55.9 Vitamin D deficiency, unspecified; R33.9 Retention of urine, unspecified

== ENCOUNTER → 2025-02-08 15:00 | Outpatient (BNVA) | payer OTHER, SELFPAY | PROVIDERS: PCP Nurse Practitioner Family; Visit Provider Nurse Practitioner Family | DX: Z00.00 Encounter for general adult medical examination without abnormal findings (principal); N40.1 Benign prostatic hyperplasia with lower urinary tract symptoms; R33.8 Other retention of urine; E55.9 Vitamin D deficiency, unspecified | CPT/HCPCS: 96127; 99395 ==

== ENCOUNTER 2025-02-14 12:08 | Outpatient (REF) | payer OTHER, SELFPAY ==
[2025-02-14 13:18] LABS: MANUAL DIFF FLAG NO
[2025-02-14 13:38] LABS: Hematocrit 45.4 % (42.0-52.0); Hemoglobin 14.6 g/dl (14.0-18.0); Imm Gran Abs Auto 0.01 X10*3/uL (0.00-0.03); Imm Gran Pct Auto 0.2 % (0.0-0.4); Lymphocytes Absolute Auto 2.0 X10*3/uL (1.2-4.9); Mean Corpuscular HGB Conc 32.2 g/dl (31.0-36.0); Mean Corpuscular Hemoglobin 25.8 pg (27.0-33.0); Mean Corpuscular Volume 80.4 fL (80.0-98.0); NRBC Abs Auto 0.000 X10*3/uL (0.0-0.012); NRBC Pct Auto 0.0 /100WBC (0.0-0.2); Platelet Count 384 X10*3/uL (160-400); Red Blood Count 5.65 X10*6/uL (4.60-5.80); White Blood Count 6.2 X10*3/uL (4.8-10.8)
[2025-02-14 14:42] LABS: Alanine Aminotransferase 73 U/L (0-40); Albumin Level 4.6 g/dL (3.5-5.0); Alkaline Phosphatase 62 U/L (39-117); Anion Gap 12 (12-20); Aspartate Amino Transferase 42 U/L (5-37); Blood Urea Nitrogen 12 mg/dL (9-16); Calcium 9.1 mg/dL (8.4-10.2); Carbon Dioxide 25 mmol/L (22-29); Chloride 106 mmol/L (96-108); Cholesterol 195 mg/dL (<200); Estimated Glomerular Filt Rate > 60; HDL Cholesterol 43 mg/dL (>40); Potassium 3.5 mmol/L (3.3-5.1); Sodium 139 mmol/L (135-145); Total Protein 8.0 g/dL (6.5-8.0); Triglycerides 103 mg/dL (<150)
[2025-02-14 16:51] LABS: Appearance Urine Clear; Glucose Urine UA Negative (Negative); PH 7.5 (5.0-9.0); Specific Gravity - Urine <= 1.005 (1.005-1.025)
[2025-02-15 08:49] LABS: HBS Num1 88.39 mIU/mL (0-7.99); HBc Num1 0.11 S/CO (0.00-0.79); HBsAGNum1 0.42 S/CO (0.00-0.99); Hepatitis A Antibody IgM 0.17 Index (0-0.79); Hepatitis B Surface Antigen Negative (Negative); ~HepC Num1 0.21 S/CO (0.00-0.79); ~Hepatitis A Antibody IgM Nonreactive (Nonreactive); ~Hepatitis B Surface Antibody REACTIVE (Nonreactive); ~Hepatitis C Antibody Nonreactive (Nonreactive)
[2025-02-15 09:14] LABS: Syphilis Screen Nonreactive (Nonreactive)
[2025-02-15 10:11] LABS: CT PCR Urine NOT DETECTED (Not Detect.); NG PCR Urine NOT DETECTED (Not Detect.)
== END 2025-02-14 12:09 | disposition home or self-care (01) ==
LOC: HO.HMGCLDS 12:08
PROVIDERS: PCP Nurse Practitioner Family; Visit Provider Nurse Practitioner Family
DX: Z00.00 Encounter for general adult medical examination without abnormal findings (principal); R33.9 Retention of urine, unspecified; E55.9 Vitamin D deficiency, unspecified; Z11.8 Encounter for screening for other infectious and parasitic diseases; Z11.3 Encounter for screening for infections with a predominantly sexual mode of transmission; Z11.59 Encounter for screening for other viral diseases
CPT/HCPCS: 80053; 80061; 81003; 82306; 84153; 84443; 85025; 86704; 86706; 86709; 86780; 86803; 87340; 87491; 87591

== ENCOUNTER 2025-04-06 14:09 | Outpatient (REF) | payer OTHER, SELFPAY | END 2025-04-06 14:10 | disposition home or self-care (01) | LOC: HO.LAB 14:09 | PROVIDERS: PCP Nurse Practitioner Family; Referring Provider Nurse Practitioner Family; Visit Provider Nurse Practitioner Family | DX: N39.43 Post-void dribbling (principal); N40.1 Benign prostatic hyperplasia with lower urinary tract symptoms; R31.29 Other microscopic hematuria; R33.9 Retention of urine, unspecified; R39.12 Poor urinary stream; Z13.89 Encounter for screening for other disorder | CPT/HCPCS: 81003; 88112; 99202 ==

== ENCOUNTER 2025-04-06 14:09 | Outpatient (AMB) | payer OTHER, SELFPAY ==
--- NOTE | 2025-04-06 14:15 | MHC.OFFVIS ---
Intake Visit Reasons: incomplete bladder emptying Intake Note: patient presents today for: new pt incomplete bladder emptying urology medications: none blood thinners: none\ smoker: no Code And Test Clerk Required: No Accompanied by: Self / Same As Patient Allergies gelatin Adverse Reaction (Verified 04/06/25 14:55) Unknown Medication List - Last Reconciled 04/06/25 by BLANQUITA Dixon cholecalciferol (vitamin D3) 50 mcg PO DAILY multivitamin 1 tab PO QAM 90 days HPI Comments Details: Mario is a pleasant 35-year-old male patient of Dr. Sawant. He has a past medical history of fatty liver. He presents to the office today as a new patient for ongoing lower urinary tract symptoms he has been experiencing. In discussion with the patient today he reports noting over the last few months he has been having issues with feeling of incomplete bladder emptying and urinary dribbling. He reports having followed up with his PCP and having had a KATHERINE that noted an enlarged prostate in recommendations were made for urology referral for further assessment evaluation. In office urinalysis results reviewed with the patient today trace microscopic hematuria otherwise within normal limits. When asked he denies any previous smoking history and or workplace chemical exposure. We did discuss potential causes of the lower urinary tract symptoms he is experiencing as well as microscopic hematuria. We discussed obtaining retroperitoneal ultrasound for further assessment evaluation. We also discussed lifestyle modifications such as sitting when voiding however patient is already doing so as this is part of his culture. He otherwise denies incontinence, nocturia, hematuria, dysuria, foul smelling urine, flank pain, fever, and or chills. All questions were answered. He otherwise offers no other issues or concerns at this time. FORMERLY [facility] Medical History (Updated 04/06/25 @ 15:03 by BLANQUITA Dixon) Fatty liver Surgical History No pertinent past surgical history Family History Mother No problems noted. Father No problems noted. Social History Housing: House Alcohol intake: never Patient Tobacco Use Status: Never used Tobacco e-Cigarette/Vaping Use: Never Used Second Hand Smoke Exposure: No service: No Current occupational status: employed Current occupation: [employer] Current occupational exposures/hazards: No Cognitive needs: No Hearing needs: No Vision needs: No Review of Systems Const All systems reviewed & are unremarkable except as noted in HPI and below Physical Exam Const General: cooperative, healthy appearing, comfortable, no acute distress, well developed, alert and awake Orientation/consciousness: patient oriented x3 Limitations: no limitations HEENT Head: Yes normal to inspection, Yes normocephalic and Yes atraumatic Ears: hearing grossly normal bilaterally Eyes General: appearance normal, both eyes and all related structures Neck Neck: Yes normal visual inspection and Yes trachea midline Chest Chest palpation & inspection: normal inspection of the chest Resp Effort & Inspection: normal respiratory effort and able to speak in complete sentences Cardio Rate: regular rate GI Inspection: Yes normal to inspection General: Yes no CVA tenderness Back/Spine/Pelvis Back: no CVA tenderness Skin General skin exam: no rashes or lesions noted Neuro General: patient oriented x3 Extrem General: Yes normal to inspection Psych Appearance: grossly normal and well kempt Mental Status: mental status grossly normal Speech and movement: Normal speech and movement present and Clear speech present Affect: normal affect Attitude: cooperative Thought process: Normal thought process present Thought content: Normal thought content present Insight: Fair insight present (Psych) Judgement: Fair judgement present (Psych) Results AMB Urinalysis, Automated UA Leukoctes 0 Xavier/uL Last Edit by BENSON Milligan on 04/06/25 14:31 UA Nitrite Last Edit by BENSON Milligan on 04/06/25 14:31 UA Urobilinogen 0.2 mg/dL Last Edit by BENSON Milligan on 04/06/25 14:31 UA Protein 0 mg/dL Last Edit by BENSON Mililgan on 04/06/25 14:31 UA pH 6.0 Last Edit by BENSON Milligan on 04/06/25 14:31 UA Blood 10 Bobby/uL Last Edit by BENSON Milligan on 04/06/25 14:31 UA Specific [place] 1.010 Last Edit by BENSON Milligan on 04/06/25 14:31 UA Ketone Last Edit by BENSON Milligan on 04/06/25 14:31 UA Bilirubin 0 mg/dL Last Edit by BENSON Milligan on 04/06/25 14:31 UA Glucose 0 mg/dL Last Edit by BENSON Milligan on 04/06/25 14:31 Results Reviewed Results Reviewed: Laboratory Last Values Urine pH (Auto) 6.0 04/06/25 14:30 Specific [place] (Auto) 1.010 04/06/25 14:30 Urine Protein (Auto) 0 mg/dL 04/06/25 14:30 Glucose (UA)(Auto) 0 mg/dL 04/06/25 14:30 Urine Blood (Auto) 10 Bobby/uL 04/06/25 14:30 Urine Bilirubin (Auto) 0 mg/dL 04/06/25 14:30 Urine Urobilinogen (Auto) 0.2 mg/dL 04/06/25 14:30 Leukocyte Esterase (Auto) 0 Xavier/uL 04/06/25 14:30 Assessment & Plan Assessment & Plan (1) Incomplete bladder emptying: Code(s): R33.9 - Retention of urine, unspecified Category: Medical (2) Urinary dribbling: Code(s): N39.43 - Post-void dribbling Category: Medical Plan In office urinalysis results reviewed with the patient today; as noted above; will send for urine cytology We discussed potential causes of lower urinary tract symptoms as well as microscopic hematuria; we discussed further treatment options and risks and benefits of these treatment options. Start alfuzosin as discussed and prescribed. Will obtain retroperitoneal ultrasound for further assessment evaluation. Will obtain PSA for further assessment evaluation. All questions were answered. Follow-up in 1-3 months with PVR, imaging, and PSA; or sooner with any issues, concerns, and or questions. Orders: Orders Urine Cytology Today R31.29 - Other microscopic hematuria AMB Urinalysis Automated Today Z13.9 - Encounter for screening, unspecified US retroperitoneal comp Today N39.43 - Post-void dribbling, R33.9 - Retention of urine, unspecified Prostate Specific Antigen Today N39.43 - Post-void dribbling, R33.9 - Retention of urine, unspecified Medications: New alfuzosin ER Take before bedtime 10 mg PO BEDTIME 30 tabs 3RF 30 days N32.0 - Bladder-neck obstruction, N40.1 - Benign prostatic hyperplasia with lower urinary tract symptoms, R33.9 - Retention of urine, unspecified, R35.1 - Nocturia, R39.12 - Poor urinary stream Patient Instructions: The patient had an opportunity to ask questions regarding the treatment plan. All questions were answered. Physical exam, labs, and imaging were discussed and reviewed in detail. As well as risks, benefits, and discussion of treatment choices. No major barriers to understanding were identified. The patient expressed understanding and agreement with the above treatment plan. The patient was made aware they should contact our office by phone for worsening of their current condition, the appearance of new symptoms, or with any questions or concerns. Compliance is encouraged with any medications and follow up testing that is ordered. It is a privilege to be allowed the opportunity to participate in? your urological care.? Again, if you have any questions or concerns If you have any questions or concerns please do not hesitate to contact me. The office is [phone]. This note is constructed using voice recognition software. While every effort has been made to ensure accuracy psychiatric security nurse errors may have been included. Yours sincerely, BLANQUITA Dixon Coding Level of Care Code New Pt Level 4 (40428) Diagnoses Incomplete bladder emptying R33.9 Urinary dribbling N39.43
== END 2025-04-06 14:53 | disposition home or self-care (01) ==
LOC: HO.HUSH 14:10
PROVIDERS: PCP Nurse Practitioner Family; Referring Provider Nurse Practitioner Family; Visit Provider Nurse Practitioner Family
DX: R33.9 Retention of urine, unspecified (principal); N39.43 Post-void dribbling; Z13.9 Encounter for screening, unspecified
CPT/HCPCS: 99204

== ENCOUNTER 2025-07-04 13:47 | Outpatient (REF) | payer OTHER, SELFPAY ==
--- NOTE | ~2025-07-04 | US_ITS ---
EXAMINATION: US RETROPERITONEUM HISTORY: N39.43 - Post-void dribbling TECHNIQUE: Real-time grayscale ultrasound imaging of the kidneys was performed and images were reviewed. COMPARISON: Correlation is made with an abdominal ultrasound dated 04/01/2023. FINDINGS: Right kidney: The right kidney measures 11.7 x 4.4 x 6.4 cm. Renal parenchymal echotexture and thickness are normal. There are no masses. There is no hydronephrosis or renal calculi. Left Kidney: The left kidney measures 10.5 x 6.8 x 5.3 cm. Renal parenchymal echotexture and thickness are normal. There are no masses. There is no hydronephrosis or renal calculi. The urinary bladder is unremarkable. Bilateral ureteral jets are identified. Before voiding, the urinary bladder measured 7.8 x 4.7 x 8.3 cm, for an estimated volume of 161 mL. After voiding, the urinary bladder measured 3.7 x 1.4 x 3.8 cm, for an estimated volume of 11 mL. The prostate measures 3.5 x 3.0 x 3.7 cm, for an estimated volume of 20.2 mL. There is a 1.3 x 1.0 x 1.2 cm hypoechoic area in the prostate. US/US retroperitoneal comp IMPRESSION: 1. The kidneys and urinary bladder are unremarkable. 2. Post void bladder residual of 11 mL. 3. Prostate volume of 20.2 mL. There is a hypoechoic area in the prostate measuring up to 1.3 cm in size. Correlation with PSA level is suggested. Electronically signed by: Marco Antonio Sanon MD 07/04/2025 03:31 PM [facility]
[2025-07-04 18:15] LABS: Prostate Specific Antigen 1.11 ng/mL (<0.05-4.0)
== END 2025-07-04 13:48 ==
LOC: HO.HMGCX 13:47
PROVIDERS: PCP Nurse Practitioner Family; Visit Provider Nurse Practitioner Family
DX: N39.43 Post-void dribbling (principal); R33.9 Retention of urine, unspecified
CPT/HCPCS: 36415; 76770; 84153

== ENCOUNTER → 2025-07-04 14:10 | Outpatient (BNV) | payer OTHER, SELFPAY | PROVIDERS: PCP Nurse Practitioner Family; Visit Provider Radiology Diagnostic Radiology | DX: N39.43 Post-void dribbling (principal) | CPT/HCPCS: 76770 ==